=== PATIENT | female | born 1975 | race Hispanic/Latino ===

== ENCOUNTER 2018-01-26 03:29 | Emergency (ER) | payer SELFPAY ==
[2018-01-26] MEDS ORDERED: ACETAMINOPHEN 325 MG TABLET ONE (04:12)
[2018-01-26] MEDS ORDERED: AZITHROMYCIN 250 MG TAB ONE (04:35)
[2018-01-26] MEDS ORDERED: HYDROCODONE/CHLORPHEN 5 ML/OSYR ONE (04:35)
--- NOTE | 2018-01-26 04:35 | EDPHYS ---
Physician Documentation [facility] Name: Kenan Mota Age: 43 yrs Sex: Female : 1975 Arrival Date: 01/26/2018 Time: 03:30 Bed 15 Private MD: ED Physician Rodo Michaels HPI: 01/26 04:06 This 43 yrs old Female presents to ER via Ambulatory with complaints of Fever, rayne Headache, Body ache, Cough. 04:06 The patient reports fever, that was measured at 100.8 degrees Fahrenheit. Onset: The rayne symptoms/episode began/occurred 2 day(s) ago. Modifying factors: there are no obvious modifying factors. Associated signs and symptoms: Pertinent positives: chills, cough, myalgias, nausea, runny nose. Severity of symptoms: At their worst the symptoms were moderate in the emergency department the symptoms are unchanged. The patient has not experienced similar symptoms in the past. 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 - Social history:: Smoking status: Patient/guardian denies using tobacco, never smoked. ROS: 04:07 Eyes: Negative for injury, pain, redness, and discharge, ENT: Negative for injury, rayne pain, and discharge, Neck: Negative for injury, pain, and swelling, Cardiovascular: Negative for chest pain, palpitations, and edema, Abdomen/GI: Negative for abdominal pain, nausea, vomiting, diarrhea, and constipation, Back: Negative for injury and pain, : Negative for injury, bleeding, discharge, and swelling, MS/Extremity: Negative for injury and deformity, Skin: Negative for injury, rash, and discoloration, Neuro: Negative for headache, weakness, numbness, tingling, and seizure, Psych: Negative for depression, anxiety, suicide ideation, homicidal ideation, and hallucinations, Allergy/Immunology: Negative for hives, rash, and allergies, Endocrine: Negative for neck swelling, polydipsia, polyuria, polyphagia, and marked weight changes, Hematologic/Lymphatic: Negative for swollen nodes, abnormal bleeding, and unusual bruising. 04:07 Constitutional: Positive for body aches, chills, fatigue, fever, malaise. 04:07 Respiratory: Positive for cough, with no reported sputum. 04:07 Abdomen/GI: Positive for abdominal pain, nausea and vomiting. Exam: 04:07 Constitutional: This is a well developed, well nourished patient who is awake, alert, rayne and in no acute distress. Head/Face: Normocephalic, atraumatic. Eyes: Pupils equal round and reactive to light, extra-ocular motions intact. Lids and lashes normal. Conjunctiva and sclera are non-icteric and not injected. Cornea within normal limits. Periorbital areas with no swelling, redness, or edema. ENT: Nares patent. No nasal discharge, no septal abnormalities noted. Tympanic membranes are normal and external auditory canals are clear. Oropharynx with no redness, swelling, or masses, exudates, or evidence of obstruction, uvula midline. Mucous membranes moist. Neck: Trachea midline, no thyromegaly or masses palpated, and no cervical lymphadenopathy. Supple, full range of motion without nuchal rigidity, or vertebral point tenderness. No Meningismus. Chest/axilla: Normal chest wall appearance and motion. Nontender with no deformity. No lesions are appreciated. Cardiovascular: Regular rate and rhythm with a normal S1 and S2. No gallops, murmurs, or rubs. Normal PMI, no JVD. No pulse deficits. Abdomen/GI: Soft, non-tender, with normal bowel sounds. No distension or tympany. No guarding or rebound. No evidence of tenderness throughout. Back: No spinal tenderness. No costovertebral tenderness. Full range of motion. Skin: Warm, dry with normal turgor. Normal color with no rashes, no lesions, and no evidence of cellulitis. MS/ Extremity: Pulses equal, no cyanosis. Neurovascular intact. Full, normal range of motion. Neuro: Awake and alert, GCS 15, oriented to person, place, time, and situation. Cranial nerves II-XII grossly intact. Motor strength 5/5 in all extremities. Sensory grossly intact. Cerebellar exam normal. Normal gait. Psych: Awake, alert, with orientation to person, place and time. Behavior, mood, and affect are within normal limits. 04:07 Respiratory: mild respiratory distress is noted, Respirations: normal, Breath sounds: are clear throughout, Respiratory rate: 20 Vital Signs: 03:44 BP 130 / 87; Pulse 119; Resp 20; Temp 100.8(O); Pulse Ox 98% on R/A; Weight 81.65 kg; tl1 Height 5 ft. 4 in. (162.56 cm); Pain 7/10; 04:56 BP 119 / 85; Pulse 78; Resp 16; Temp 99.8(O); Pulse Ox 100% on R/A; Pain 0/10; bs1 03:44 Body Mass Index 30.90 (81.65 kg, 162.56 cm) tl1 MDM: 03:57 Patient medically screened. [facility] 04:09 Data reviewed: vital signs, nurses notes, lab test result(s), radiologic studies. [facility] 01/26 03:52 Order name: Flu [facility] 01/26 03:52 Order name: Strep [facility] 01/26 04:39 Order name: Urine Dipstick--Ancillary (enter results) [facility] 01/26 04:39 Order name: Urine --Ancillary (enter results) [facility] 01/26 04:46 Order name: Influenza Screen (A [facility] 01/26 04:48 Order name: Group A Streptococcus Rapid Sc [facility] 01/26 04:06 Order name: Chest Pa And Lat (2 Views) XRAY [facility] 01/26 04:53 Order name: Urine --Ancillary [facility] 01/26 04:53 Order name: Urine Dipstick-Ancillary [facility] 01/26 04:06 Order name: Urine Dipstick-Ancillary (obtain specimen); Complete Time: 04:38 [facility] 01/26 04:06 Order name: Urine Test (obtain specimen); Complete Time: 04:38 [facility] 01/26 04:06 Order name: PO challenge; Complete Time: 04:14 [facility] Administered Medications: 03:55 Drug: Tylenol 650 mg Route: PO; bs1 05:05 Follow up: Response: No adverse reaction bs1 04:21 Drug: Tussionex Pennkinetic ER 5 ml Route: PO; bs1 05:04 Follow up: Response: No adverse reaction bs1 05:04 Follow up: Response: No adverse reaction bs1 04:22 Drug: Zithromax 500 mg Route: PO; bs1 05:05 Follow up: Response: No adverse reaction bs1 04:22 Drug: Tamiflu 75 mg Route: PO; bs1 05:05 Follow up: Response: No adverse reaction bs1 04:22 Drug: Motrin 600 mg Route: PO; bs1 05:05 Follow up: Response: No adverse reaction bs1 Disposition: 01/26/18 04:34 Discharged to Home. Impression: Fever, unspecified, Acute upper respiratory infection, unspecified, Malaise and fatigue, Influenza due to identified novel influenza A virus. - Condition is Stable. - Discharge Instructions: Fever, Adult, Influenza, Adult, Upper Respiratory Infection, Adult, Cool Mist Vaporizers, Upper Respiratory Infection, Adult, Cyvw-ix-Wnox, Influenza, Adult, Fsph-zo-Hqkn, Weakness, Wcgx-tu-[id number], Cough, Adult, Fever, Adult, Qnpx-in-Lmjf. - Prescriptions for Cheratussin AC 10- 100 mg/5 mL Oral liquid - take 10 milliliter by ORAL route every 4 hours; 160 milliliter. Zithromax Z- Sawyer 250 mg Oral Tablet - take 1 tablet by ORAL route as directed for 5 days Day 1 - take two (2) tablets one time. Day 2, 3, 4 , 5 take one (1) tablet once daily.; 6 tablet. Tamiflu 75 mg Oral Capsule - take 1 tablet by ORAL route every 12 hours for 5 days; 10 tablet. - Medication Reconciliation Form, Thank You Letter, Antibiotic Education, Prescription Opioid Use form. - Follow up: Private Physician; When: 2 - 3 days; Reason: Recheck today's complaints, Continuance of care, Re-evaluation by your physician. - Problem is new. - Symptoms have improved. Signatures: Dispatcher [employer] EDRodo Díaz MD MD cha Lasagna, Tonya, RN RN tl1 Eli Conner RN RN bs1
--- NOTE | 2018-01-26 04:35 | ER ---
Nurse's Notes [facility] Name: Kenan Mota Age: 43 yrs Sex: Female : 1975 Arrival Date: 01/26/2018 Time: 03:30 Bed 15 Private MD: Diagnosis: Fever, unspecified;Acute upper respiratory infection, unspecified;Malaise and fatigue;Influenza due to identified novel influenza A virus Presentation: 01/26 03:42 Presenting complaint: Patient states: Yesterday I started running fever, having body tl1 aches, cough, sore throat and headache. Transition of care: patient was not received from another setting of care. Onset of symptoms was January 25, 2018. Care prior to arrival: Medication(s) given: Tylenol. 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 - Social history:: Smoking status: Patient/guardian denies using tobacco, never smoked. Screenin:26 Abuse screen: Denies threats or abuse. Denies injuries from another. Nutritional bs1 screening: No deficits noted. Tuberculosis screening: No symptoms or risk factors identified. Fall Risk None identified. Assessment: 04:00 General: Appears in no apparent distress. uncomfortable, Behavior is cooperative, bs1 appropriate for age, Reports chills for 12-24 hours, fever for 12-24 hours. Pain: Denies pain. Neuro: Level of Consciousness is awake, alert, obeys commands, Oriented to person, place, time, situation, Appropriate for age Managing Editor are equal bilaterally Moves all extremities. Gait is steady, Speech is normal, Facial symmetry appears normal. Cardiovascular: Heart tones S1 S2 present Capillary refill < 3 seconds Patient's skin is warm and dry. Respiratory: Airway is patent Trachea midline Respiratory effort is even, unlabored, Respiratory pattern is regular, symmetrical, Breath sounds are diminished bilaterally. Respiratory: Reports cough that is non-productive, persistent. GI: No deficits noted. No signs and/or symptoms were reported involving the gastrointestinal system. : No deficits noted. No signs and/or symptoms were reported regarding the genitourinary system. EENT: Reports nasal congestion nasal discharge. Derm: No deficits noted. No signs and/or symptoms reported regarding the dermatologic system. Musculoskeletal: Circulation, motion, and sensation intact. Capillary refill < 3 seconds, Range of motion: intact in all extremities. 04:27 Neuro: Reports headache in entire. bs1 Vital Signs: 03:44 BP 130 / 87; Pulse 119; Resp 20; Temp 100.8(O); Pulse Ox 98% on R/A; Weight 81.65 kg; tl1 Height 5 ft. 4 in. (162.56 cm); Pain 7/10; 04:56 BP 119 / 85; Pulse 78; Resp 16; Temp 99.8(O); Pulse Ox 100% on R/A; Pain 0/10; bs1 03:44 Body Mass Index 30.90 (81.65 kg, 162.56 cm) tl1 ED Course: 03:30 Patient arrived in ED. am2 03:44 Triage completed. tl1 03:45 Arm band placed on right wrist. tl1 03:53 Eli Conner RN is Primary Nurse. bs1 03:57 Rodo Michaels MD is Attending Physician. rayne 04:13 Flu Sent. bs1 04:13 Strep Sent. bs1 04:26 Patient has correct armband on for positive identification. Bed in low position. Call bs1 light in reach. Side rails up X 1. 04:28 Patient moved to radiology via wheelchair. kw 04:28 X-ray completed. Patient tolerated procedure well. kw 04:28 Patient moved back from radiology. kw 05:03 No provider procedures requiring assistance completed. Patient did not have IV access bs1 during this emergency room visit. Administered Medications: 03:55 Drug: Tylenol 650 mg Route: PO; bs1 05:05 Follow up: Response: No adverse reaction bs1 04:21 Drug: Tussionex Pennkinetic ER 5 ml Route: PO; bs1 05:04 Follow up: Response: No adverse reaction bs1 05:04 Follow up: Response: No adverse reaction bs1 04:22 Drug: Zithromax 500 mg Route: PO; bs1 05:05 Follow up: Response: No adverse reaction bs1 04:22 Drug: Tamiflu 75 mg Route: PO; bs1 05:05 Follow up: Response: No adverse reaction bs1 04:22 Drug: Motrin 600 mg Route: PO; bs1 05:05 Follow up: Response: No adverse reaction bs1 Outcome: 04:34 Discharge ordered by MD. mclain 05:03 Discharged to home ambulatory, with significant other. bs1 05:03 Condition: good 05:03 Discharge instructions given to patient, Instructed on discharge instructions, follow up and referral plans. medication usage, Demonstrated understanding of instructions, follow-up care, medications, Prescriptions given X 3. 05:06 Patient left the ED. bs1 Signatures: Rodo Michaels MD MD cha Whitley, Kimberlee kw Lasagna, Tonya, RN RN tl1 Caridad Castaneda Brittany, RN RN bs1 Corrections: (The following items were deleted from the chart) 05:03 04:56 Temp 99.8F Oral; bs1 bs1
[2018-01-26] MEDS ORDERED: IBUPROFEN 200 MG TAB PO ONE (04:36)
[2018-01-26] MEDS ORDERED: OSELTAMIVIR 75 MG CAP ONE (04:36)
[2018-01-26 04:53] LABS: Urine Blood 2+ (NEG); Urine Glucose NEGATIVE (NEG); Urine Protein NEGATIVE (NEG); Urine pH 5.5 (5.0-7.0)
--- NOTE | 2018-01-26 09:56 | RAD REPORT ---
EXAM DESCRIPTION: Nona Larios (2 Views)01/26/2018 4:31 am CLINICAL HISTORY: Cough COMPARISON: None FINDINGS: The lungs appear clear of acute infiltrate. The heart is normal size IMPRESSION: No acute abnormalities displayed
== END 2018-01-26 05:06 | disposition home or self-care (01) ==
LOC: ER 03:29
DX: J10.1 Influenza due to other identified influenza virus with other respiratory manifestations (principal); R53.81 Other malaise; R53.83 Other fatigue
CPT/HCPCS: 71046; 81003; 81025; 87070; 87081; 87804; 99284

== ENCOUNTER 2019-02-10 11:10 | Emergency (ER) | payer SELFPAY ==
--- NOTE | 2019-02-10 12:31 | RAD REPORT ---
EXAM DESCRIPTION: US - BREAST/AXILLA, LIMITED - 02/10/2019 12:23 pm CLINICAL HISTORY: Left breast pain COMPARISON: None FINDINGS: Limited sonographic evaluation was performed of the upper outer quadrant and axillary tail of the left breast. No solid or cystic mass of concern identifiable on the examination. There were 2 axilla and axillary tail lymph nodes identified showing benign imaging characteristics. IMPRESSION: Negative limited left breast ultrasound for acute or significant finding.
[2019-02-10 12:53] LABS: Absolute Lymphocytes (CBC) 2.2 K/uL (0.7-4.9); Absolute Monocytes 0.8 K/uL (0.1-1.3); Absolute Neutrophil 6.7 K/uL (1.8-8.0); Basophils % 0.7 % (0-1.3); Eosinophils % 1.4 % (0-4.4); Hematocrit 41.2 % (36.0-45.0); Lymphocytes % 21.8 % (15.3-44.8); MPV 8.4 fL (7.6-11.3); Monocytes % 8.2 % (3.3-12.3)
[2019-02-10 13:04] LABS: Protime INR 0.96
[2019-02-10 13:07] LABS: ALT/SGPT 65 U/L (12-78); AST/SGOT 27 U/L (15-37); Albumin 3.5 g/dL (3.4-5.0); Alkaline Phosphatase 85 U/L (45-117); BUN Blood Urea Nitrogen 7 mg/dL (7-18); Bicarbonate 29 mmol/L (21-32); Bilirubin Direct 0.1 mg/dL (0-0.2); Bilirubin Total 0.3 mg/dL (0.2-1.0); Glucose Level 117 mg/dL (74-106); Magnesium 2.2 mg/dL (1.8-2.4); NT PRO-BNP 48 pg/mL (<125); Potassium 3.8 mmol/L (3.5-5.1); Protein, Total 7.4 g/dL (6.4-8.2); Sodium Level 140 mmol/L (136-145); Troponin (Emerg Dept Use Only) < 0.02 ng/mL (0.0-0.045)
--- NOTE | 2019-02-10 13:11 | RAD REPORT ---
EXAM DESCRIPTION: RAD - Chest Single View - 02/10/2019 1:06 pm CLINICAL HISTORY: Left-sided chest pain, left-sided breast pain COMPARISON: January 2018 TECHNIQUE: AP portable chest image was obtained 1301 hours . FINDINGS: Lungs are clear. Heart and vasculature are normal. No measurable pleural effusion and no p neumothorax. No acute bony abnormality seen. No acute aortic findings suspected. IMPRESSION: No acute cardiopulmonary process.
--- NOTE | 2019-02-10 13:40 | ER ---
Nurse's Notes [facility] Name: Kenan Mota Age: 44 yrs Sex: Female : 1975 Arrival Date: 02/10/2019 Time: 11:12 Bed 6 Private MD: Diagnosis: Breast Pain;Chest Pain Presentation: 02/10 11:13 Presenting complaint: Patient states: for a couple of weeks my L breast is hurting; hj today its getting worse, the pain is moving to the armpit and to the back, it looks like my L breast is swollen, denies trauma to the area; denies discharges, denies fever and chills;. Transition of care: patient was not received from another setting of care. Onset of symptoms was February 10, 2019. Risk Assessment: Do you want to hurt yourself or someone else? Patient reports no desire to harm self or others. Initial Sepsis Screen: Does the patient meet any 2 criteria? No. Patient's initial sepsis screen is negative. Does the patient have a suspected source of infection? No. Patient's initial sepsis screen is negative. Care prior to arrival: None. 11:13 Method Of Arrival: Ambulatory 11:13 Acuity: KELY 3 hj Triage Assessment: 11:15 General: Appears in no apparent distress. uncomfortable, Behavior is calm, cooperative, hj appropriate for age. Pain: Complains of pain in left nipple and left breast. 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 - Social history:: Smoking status: Patient/guardian denies using tobacco, Patient/guardian denies using alcohol. - Ebola Screening: : Patient negative for fever greater than or equal to 101.5 degrees Fahrenheit, and additional compatible Ebola Virus Disease symptoms Patient denies exposure to infectious person Patient denies travel to an Ebola-affected area in the 21 days before illness onset. Screenin:16 Abuse screen: Denies threats or abuse. Denies injuries from another. Nutritional hj screening: No deficits noted. Tuberculosis screening: No symptoms or risk factors identified. Fall Risk None identified. Assessment: 12:30 General: Appears in no apparent distress. uncomfortable. Pain: Complains of pain in jl7 left breast Pain currently is 7 out of 10 on a pain scale. Neuro: Level of Consciousness is awake, alert, obeys commands, Oriented to person, place, time, situation. Cardiovascular: Patient's skin is warm and dry. Respiratory: Airway is patent Respiratory effort is even, unlabored, Respiratory pattern is regular, symmetrical. Derm: Skin is pink, warm \T\ dry. 13:35 Reassessment: Patient appears in no apparent distress at this time. Patient and/or jl7 family updated on plan of care and expected duration. Pain level reassessed. Patient is alert, oriented x 3, equal unlabored respirations, skin warm/dry/pink. ERP at bedside discussing plan of care. 13:54 Reassessment: Patient states feeling better. Patient states symptoms have improved. jl7 Vital Signs: 11:16 BP 137 / 81; Pulse 100; Resp 18; Temp 98.4(O); Pulse Ox 97% on R/A; Weight 81.65 kg; hj Height 5 ft. 4 in. (162.56 cm); Pain 7/10; 12:41 BP 143 / 88; Pulse 92; Resp 16 S; Pulse Ox 98% on R/A; jl7 13:39 BP 132 / 79; Pulse 86; Resp 17 S; Pulse Ox 97% on R/A; jl7 11:16 Body Mass Index 30.90 (81.65 kg, 162.56 cm) ED Course: 11:12 Patient arrived in ED. as 11:15 Triage completed. hj 11:16 Arm band placed on left wrist. hj 11:18 Patient has correct armband on for positive identification. Placed in gown. Bed in low hj position. Call light in reach. Adult w/ patient. 11:45 Jayme Rodriguez PA is PHCP. [facility] 11:45 Brody Carr MD is Attending Physician. [facility] 12:23 BREAST/AXILLA, LIMITED In Process Unspecified. EDMS 12:25 Gene Armstrong RN is Primary Nurse. jl7 12:39 Pulse ox on. NIBP on. jl7 12:39 Initial lab(s) drawn, by me, sent to lab. Inserted saline lock: 22 gauge in right jl7 antecubital area, using aseptic technique. Blood collected. 13:06 XRAY Chest (1 view) In Process Unspecified. EDMS 13:38 Kael Ramirez MD is Referral Physician. [facility] 13:54 No provider procedures requiring assistance completed. IV discontinued, intact, jl7 bleeding controlled, No redness/swelling at site. Pressure dressing applied. Administered Medications: 13:37 Drug: Ketorolac 30 mg Route: IVP; Site: right antecubital; jl7 13:55 Follow up: Response: No adverse reaction; Pain is decreased jl7 Outcome: 13:39 Discharge ordered by MD. jmm 13:54 Discharged to home ambulatory. jl7 13:54 Condition: stable 13:54 Discharge instructions given to patient, family, Instructed on discharge instructions, follow up and referral plans. Demonstrated understanding of instructions, follow-up care. 13:56 Patient left the ED. jl7 Signatures: Dispatcher [employer] EDMS Jayme Rodriguez PA PA jmm Martinez, Amelia as Joaquin, Henry, RN RN Gene Mcgrath RN RN jl7
--- NOTE | 2019-02-10 13:40 | EDPHYS ---
Physician Documentation [facility] Name: Kenan Mota Age: 44 yrs Sex: Female : 1975 Arrival Date: 02/10/2019 Time: 11:12 Bed 6 Private MD: ED Physician Brody Carr HPI: 02/10 11:54 This 44 yrs old Female presents to ER via Ambulatory with complaints of Back jmm Pain, Arm Pain, Breast Pain. 11:54 This 44 yrs old Female presents to ER via Ambulatory with complaints of Back jmm Pain, Arm Pain, Breast Pain. 11:54 The patient or guardian reports chest pain that is located primarily in the left jmm breast. Onset: last night. The pain radiates to the left scapula. Associated signs and symptoms: Pertinent positives: shortness of breath. This is a 44 year old male with no chronic medical conditions that presents to the ED with complaints of left breast pain which radiates to her back. Patient states having left breast pain intermittently over the past few months. Patient states this episode of pain has been constant. Denies CAD, denies tobacco use, denies family history of CAD. . 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 - Social history:: Smoking status: Patient/guardian denies using tobacco, Patient/guardian denies using alcohol. - Ebola Screening: : Patient negative for fever greater than or equal to 101.5 degrees Fahrenheit, and additional compatible Ebola Virus Disease symptoms Patient denies exposure to infectious person Patient denies travel to an Ebola-affected area in the 21 days before illness onset. ROS: 11:54 Constitutional: Negative for fever, chills, and weight loss. jmm 11:54 Cardiovascular: Positive for chest pain. 11:54 All other systems are negative. Exam: 11:54 Head/Face: atraumatic. Eyes: EOMI, no conjunctival erythema appreciated ENT: Moist jmm Mucus Membranes Neck: Trachea midline, Supple 11:54 Constitutional: The patient appears in no acute distress, alert, awake. 11:54 Chest/axilla: Breasts: are normal, no erythema appreciated, no induration appreciated. 11:54 Cardiovascular: Rate: normal, Rhythm: regular, Pulses: no pulse deficits are appreciated. 11:54 Respiratory: the patient does not display signs of respiratory distress, Respirations: normal, Breath sounds: are clear throughout. 11:54 Abdomen/GI: Inspection: abdomen appears normal, Bowel sounds: normal, Palpation: abdomen is soft and non-tender, in all quadrants. 11:54 Back: ROM is normal. 11:54 Musculoskeletal/extremity: ROM: intact in all extremities. 11:54 Skin: Appearance: Color: normal in color. 11:54 Neuro: Orientation: is normal, Mentation: is normal, Memory: is normal. 11:54 Psych: Behavior/mood is pleasant, cooperative. 13:30 ECG was reviewed by the Attending Physician. [facility] Vital Signs: 11:16 BP 137 / 81; Pulse 100; Resp 18; Temp 98.4(O); Pulse Ox 97% on R/A; Weight 81.65 kg; hj Height 5 ft. 4 in. (162.56 cm); Pain 7/10; 12:41 BP 143 / 88; Pulse 92; Resp 16 S; Pulse Ox 98% on R/A; jl7 13:39 BP 132 / 79; Pulse 86; Resp 17 S; Pulse Ox 97% on R/A; jl7 11:16 Body Mass Index 30.90 (81.65 kg, 162.56 cm) MDM: 11:54 Patient medically screened. [facility] 13:28 Data reviewed: EKG. Data interpreted:. Test interpretation: by ED physician or midlevel [facility] provider: ECG. 13:38 Counseling: I had a detailed discussion with the patient and/or guardian regarding: the [facility] historical points, exam findings, and any diagnostic results supporting the discharge/admit diagnosis, lab results, radiology results, the need for outpatient follow up, to return to the emergency department if symptoms worsen or persist or if there are any questions or concerns that arise at home. 13:38 ED course: Symptoms appear most likely muscultoskeletal. I discussed with the patient [facility] the need for further evaluation due to concerns for breast cancer. I also discussed with the patient the need to follow up with cardiology outpatient for further evaluation. patient is low risk for acs. patient was given strict return precautions. patient understood and agrees with the plan of care. . 02/10 11:56 Order name: Basic Metabolic Panel; Complete Time: 13:10 [facility] 02/10 11:56 Order name: CBC with Diff; Complete Time: 13:10 [facility] 02/10 11:56 Order name: LFT's; Complete Time: 13:10 [facility] 02/10 11:56 Order name: Magnesium; Complete Time: 13:10 [facility] 02/10 11:56 Order name: NT PRO-BNP; Complete Time: 13:10 [facility] 02/10 11:56 Order name: PT-INR; Complete Time: 13:10 [facility] 02/10 11:56 Order name: Troponin (emerg Dept Use Only); Complete Time: 13:10 [facility] 02/10 11:56 Order name: XRAY Chest (1 view); Complete Time: 13:35 [facility] 02/10 11:56 Order name: EKG; Complete Time: 11:57 [facility] 02/10 11:56 Order name: Cardiac monitoring; Complete Time: 12:43 [facility] 02/10 11:56 Order name: D-Dimer; Complete Time: 13:10 [facility] 02/10 11:56 Order name: US Extrmty Nonvasular Limited [facility] 02/10 11:58 Order name: BREAST/AXILLA, LIMITED; Complete Time: 12:41 [facility] 02/10 11:56 Order name: EKG - Nurse/Tech; Complete Time: 12:43 [facility] 02/10 11:56 Order name: IV Saline Lock; Complete Time: 12:42 [facility] 02/10 11:56 Order name: Labs collected and sent; Complete Time: 12:42 [facility] 02/10 11:56 Order name: O2 Per Protocol; Complete Time: 12:42 [facility] 02/10 11:56 Order name: O2 Sat Monitoring; Complete Time: 12:42 jm EC:30 Rate is 85 beats/min. Rhythm is regular. QRS [place] is Normal. HI interval is normal. QRS jmm interval is normal. QT interval is normal. T waves are Inverted in leads III, V1, V2, V3, V4. No ST changes noted. Administered Medications: 13:37 Drug: Ketorolac 30 mg Route: IVP; Site: right antecubital; jl7 13:55 Follow up: Response: No adverse reaction; Pain is decreased jl7 Disposition: 14:28 Co-signature as Attending Physician, Brody Carr MD I agree with the assessment and kdr plan of care. Disposition: 02/10/19 13:39 Discharged to Home. Impression: Breast Pain, Chest Pain. - Condition is Stable. - Discharge Instructions: Nonspecific Chest Pain. - Medication Reconciliation Form, Thank You Letter, Antibiotic Education, Prescription Opioid Use, Family Work Release form. - Follow up: Kael Ramirez MD; When: 2 - 3 days; Reason: Recheck today's complaints, Continuance of care, Re-evaluation by your physician. Signatures: Dispatcher [employer] EDMS Brody Carr MD MD kdr Mickail, Joel, PA PA jmm Joaquin, Henry, RN RN Gene Mcgrath RN RN jl7 Corrections: (The following items were deleted from the chart) 13:56 13:39 02/10/2019 13:39 Discharged to Home. Impression: Breast Pain; Chest Pain. jl7 Condition is Stable. Forms are Medication Reconciliation Form, Thank You Letter, Antibiotic Education, Prescription Opioid Use. Follow up: Kael Ramirez; When: 2 - 3 days; Reason: Recheck today's complaints, Continuance of care, Re-evaluation by your physician. kevin
[2019-02-10] MEDS ORDERED: KETOROLAC 30 MG/ML INJ ONE (13:45)
== END 2019-02-10 13:56 | disposition home or self-care (01) ==
LOC: ER 11:10
DX: N64.4 Mastodynia (principal); R07.9 Chest pain, unspecified
CPT/HCPCS: 36415; 71045; 76642; 80048; 80076; 83735; 83880; 84484; 85025; 85379; 85610; 93005; 96374; 99284